=== PATIENT | male | born 1940 | race Caucasian/White ===

== ENCOUNTER → 2023-07-15 09:38 | Outpatient (BNVA) | payer MEDICARE, BC, SELFPAY | PROVIDERS: PCP Family Medicine; Visit Provider Specialist | DX: R29.90 Unspecified symptoms and signs involving the nervous system (principal); G60.9 Hereditary and idiopathic neuropathy, unspecified; G25.0 Essential tremor; R00.1 Bradycardia, unspecified | CPT/HCPCS: 99204; 99205 ==

== ENCOUNTER → 2023-11-06 08:58 | Outpatient (BNVA) | payer MEDICARE, BC, SELFPAY | PROVIDERS: PCP Family Medicine; Visit Provider Specialist | DX: G60.9 Hereditary and idiopathic neuropathy, unspecified (principal); M47.12 Other spondylosis with myelopathy, cervical region; M47.22 Other spondylosis with radiculopathy, cervical region; R25.1 Tremor, unspecified; M54.50 Low back pain, unspecified | CPT/HCPCS: 99214; 99215 ==

== ENCOUNTER → 2024-08-10 11:46 | Outpatient (BNVA) | payer MEDICARE, BC, SELFPAY | PROVIDERS: PCP Family Medicine; Visit Provider Specialist | DX: G25.0 Essential tremor (principal); M54.16 Radiculopathy, lumbar region; G60.9 Hereditary and idiopathic neuropathy, unspecified; M47.12 Other spondylosis with myelopathy, cervical region; M47.22 Other spondylosis with radiculopathy, cervical region | CPT/HCPCS: 99215 ==

== ENCOUNTER 2024-09-14 12:08 | Outpatient (CLI) | payer MEDICARE, BC, SELFPAY ==
--- NOTE | 2024-09-14 13:00 | MR_ITS ---
WS: [id number] MRI LUMBAR SPINE NONCONTRAST HISTORY: M54.16 - Radiculopathy, lumbar region COMPARISON: 04/01/2022 TECHNIQUE: Sagittal and axial multisequence imaging is submitted. Anterior cervical fusion from C4-C7. Disc osteophyte encroaching upon the ventral cervical cord at C3-4 and C4-5. Mild straightening and scoliosis of the lumbar vertebral bodies. Disc spaces are all narrowed and desiccated with hypertrophic osteophytes and disc bulging at several levels. L4 anterolisthesis by 5 mm. Schmorl's node L5. Conus terminates normally at L1-2 disc level. L1-L2: Osteophytic ridging with annular disc bulging, ligamentum flavum and facet arthritis. Central disc protrusion and osteophyte encroaching upon the ventral thecal sac resulting in severe central and bilateral subarticular recess stenosis. Asymmetric disc bulging to the RIGHT with mild to moderate bilateral foraminal stenosis. L2-L3: Osteophytic ridging with disc bulging and facet and ligamentum flavum hypertrophy. Small amount of fluid in the RIGHT facet joint. Severe central and bilateral subarticular recess stenosis with mild foraminal stenosis. L3-L4: Marked annular disc bulging with osteophytic ridging. Ligamentum flavum and facet arthritis. Fluid in the RIGHT facet joint. Severe central and subarticular recess stenosis. Moderate bilateral foraminal stenosis, greater on the RIGHT. L4-L5: Diffuse annular disc bulge with a central disc protrusion. Mild osteophytic ridging, ligamentum flavum and facet arthritis. Broad-based RIGHT foraminal disc protrusion. Severe central, bilateral subarticular recess and moderate foraminal stenosis. L5-S1: Osteophytic ridging with disc bulging and facet arthritis. RIGHT hemilaminectomy defect. Disc osteophyte contacts the RIGHT S1 nerve root and the RIGHT exiting L5 nerve root. Mild central and LEFT subarticular recess and LEFT foraminal stenosis. MR/MR lumbar spine wo con* [id number] IMPRESSION: 1. Progression of multilevel central, subarticular recess and foraminal stenos is since 04/01/2022. 2. Stenosis due to combination of disc disease, osteophytosis, ligamentum flav um and facet arthritis. 3. L1-2: Severe central and bilateral subarticular recess stenosis. Mild to mo derate bilateral foraminal stenosis. 4. L2-3: Severe central, bilateral subarticular recess and mild foraminal sten osis. 5. L3-4: Severe central, subarticular recess and moderate bilateral foraminal stenosis. 6. L4-5: Severe central, bilateral subarticular recess and moderate foraminal stenosis. 7. L5-S1: RIGHT hemilaminectomy. Disc osteophyte contacts the RIGHT S1 nerve r oot and the RIGHT exiting L5 nerve root. Mild central, LEFT subarticular recess and LEFT foraminal stenosis also.
== END 2024-09-14 12:09 | disposition home or self-care (01) ==
LOC: RAD 12:10
PROVIDERS: PCP Family Medicine; Visit Provider Specialist
DX: M54.16 Radiculopathy, lumbar region (principal); M48.061 Spinal stenosis, lumbar region without neurogenic claudication; M25.78 Osteophyte, vertebrae; M24.28 Disorder of ligament, vertebrae; M47.896 Other spondylosis, lumbar region; Z98.890 Other specified postprocedural states; M48.07 Spinal stenosis, lumbosacral region; M41.86 Other forms of scoliosis, lumbar region; M51.46 Schmorl's nodes, lumbar region; M43.16 Spondylolisthesis, lumbar region; M51.362 Other intervertebral disc degeneration, lumbar region with discogenic back pain and lower extremity pain; M51.26 Other intervertebral disc displacement, lumbar region; R93.7 Abnormal findings on diagnostic imaging of other parts of musculoskeletal system; M51.372 Other intervertebral disc degeneration, lumbosacral region with discogenic back pain and lower extremity pain; M47.897 Other spondylosis, lumbosacral region; M96.89 Other intraoperative and postprocedural complications and disorders of the musculoskeletal system
CPT/HCPCS: 72148